=== PATIENT | female | born 1995 | race Caucasian/White ===

== ENCOUNTER 2017-03-07 06:53 | Emergency (ER) | payer SELFPAY ==
[~2017-03-07] VITALS: Ht 157.5 cm; Wt 61.7 kg
--- NOTE | 2017-03-07 06:58 | PHYS DOC ---
Adult General Chief Complaint Chief Complaint: sore throat HPI HPI Patient is a 21 year old female who presents with throat. She states it started 2 days ago its gotten worse. She states it's difficult for her to swallow and she's not been eating or drinking much. She states she has a history of this in it's easily strep throat. She states usually she is antibiotics and it resolves. She states she felt like she had chills overnight. She denies any shortness of breath headache. She denies any allergies to any medications. Review of Systems Review of Systems Constitutional: Denies fever or chills [] Eyes: Denies change in visual acuity, redness, or eye pain [] HENT: Denies nasal congestion, positive for sore throat [] Respiratory: Denies cough or shortness of breath [] Cardiovascular: No additional information not addressed in HPI [] GI: Denies abdominal pain, nausea, vomiting, bloody stools or diarrhea [] : Denies dysuria or hematuria [] Musculoskeletal: Denies back pain or joint pain [] Integument: Denies rash or skin lesions [] Neurologic: Denies headache, focal weakness or sensory changes [] Endocrine: Denies polyuria or polydipsia [] Physical Exam Physical Exam Constitutional: Well developed, well nourished, no acute distress, non-toxic appearance. [] HENT: Normocephalic, atraumatic, bilateral external ears normal, oropharynx moist, no oral exudates, nose normal. White exudates on bilateral pontine tonsils Eyes: PERRLA, EOMI, conjunctiva normal, no discharge. [] Neck: Normal range of motion, no tenderness, supple, no stridor. Anterior cervical lymphadenopathy noted Cardiovascular:Heart rate regular rhythm, no murmur [] Lungs & Thorax: Bilateral breath sounds clear to auscultation [] Abdomen: Bowel sounds normal, soft, no tenderness, no masses, no pulsatile masses. [] Skin: Warm, dry, no erythema, no rash. [] Back: No tenderness, no CVA tenderness. [] Extremities: No tenderness, no cyanosis, no clubbing, ROM intact, no edema. [] Neurologic: Alert and oriented X 3, normal motor function, normal sensory function, no focal deficits noted. [] Psychologic: Affect normal, judgement normal, mood normal. [] EKG EKG [] Radiology/Procedures Radiology/Procedures [] Impressions: Strep pharyngitis Course & Med Decision Making Course & Med Decision Making Pertinent Labs and Imaging studies reviewed. (See chart for details) Her history, physical exam is consistent with strep throat. Vitals were reviewed and she's not tachycardic or febrile. Will go ahead and empirically treat. She received 1.2 million units of Bicillin IM and 10 mg IM Decadron. Return precautions given. She is agreeable Plan B discharged in stable condition this time. Dragon Disclaimer Dragon Disclaimer This chart was dictated in whole or in part using Voice Recognition software in a busy, high-work load, and often noisy Emergency Department environment. It may contain unintended and wholly unrecognized errors or omissions. Departure Departure: Impression: Primary Impression: Strep pharyngitis Disposition: 01 HOME, SELF-CARE Condition: STABLE Patient Instructions: Strep Throat Additional Instructions: Your history and physical exam is consistent with strep throat. You received an IM shot of penicillin and Decadron. Your being discharged home. If you develop severe neck pain, fevers, nausea vomiting or urinary other concerns please return back to emergency department. You should feel better within the next 24 hours. KATHERINE BELL MD Mar 07, 2017 06:58
[2017-03-07 07:07] VITALS: BP 102/62
[2017-03-07] MEDS ORDERED: PENICILLIN G BENZATHINE LA 1,200,000 UNIT/2 ML DISP.SYRIN. IM ONE ×2 (07:12→07:30)
[2017-03-07] MEDS ORDERED: DEXAMETHASONE SOD PHOS 10 MG/ML VIAL ONE (07:12)
[2017-03-07] MEDS ORDERED: DEXAMETHASONE SOD PHOS 10 MG/ML VIAL IM ONE (07:30)
== END 2017-03-07 07:27 | disposition home or self-care (01) ==
LOC: ER 06:53
DX: J02.0 Streptococcal pharyngitis (principal)
CPT/HCPCS: 96372; 99284; J0561; J1100

== ENCOUNTER 2018-02-05 08:08 | Emergency (ER) | payer SELFPAY ==
[~2018-02-05] VITALS: Ht 157.5 cm; Wt 65.9 kg
[2018-02-05] MEDS ORDERED: MECLIZINE 12.5 MG TABLET. PO PRN (08:30)
[2018-02-05] MEDS ORDERED: MECL25TA3 PO (08:33)
--- NOTE | 2018-02-05 08:33 | PHYS DOC ---
Past History Past Medical History: No Pertinent History Past Surgical History: No Surgical History Alcohol Use: Occasionally Drug Use: None Adult General Chief Complaint Chief Complaint: EARACHE/EAR PAIN HPI HPI 22-year-old female presents with right ear pain, dizziness and nausea. She states she jumped into a pool off the high board with a rifle overhead and felt like she got water in her ear. Since that time her right ear has been full she' s had a difficult time hearing. Now, she states that she is beginning to feel like the room is spinning and she is nauseous. She is not noticed any drainage from the ear.[] Review of Systems Review of Systems Constitutional: Denies fever or chills [] Eyes: Denies change in visual acuity, redness, or eye pain [] HENT: Per history of present illness[] Respiratory: Denies cough or shortness of breath [] Cardiovascular: No additional information not addressed in HPI [] GI: Denies abdominal pain, nausea, vomiting, bloody stools or diarrhea [] : Denies dysuria or hematuria [] Musculoskeletal: Denies back pain or joint pain [] Integument: Denies rash or skin lesions [] Neurologic: Dizziness[] Endocrine: Denies polyuria or polydipsia [] All other systems were reviewed and found to be within normal limits, except as documented in this note. Current Medications Current Medications Current Medications Medications (Trade) Dose Ordered Sig/[place] Start Time Stop Time Status Last Admin Dose Admin Meclizine HCl (Antivert) 25 mg PRN Q6HRS PRN 02/05/18 08:30 Allergies Allergies Allergies Coded Allergies Type Severity Reaction Last Updated Verified No Known Drug Allergies 02/05/18 No Physical Exam Physical Exam Constitutional: Well developed, well nourished, no acute distress, non-toxic appearance. [] HENT: Normocephalic, atraumatic, bilateral external ears normal, TMs visible bilaterally with no erythema or bulging, oropharynx moist, no oral exudates, nose normal. [] Eyes: PERRLA, EOMI, conjunctiva normal, no discharge. [] Neck: Normal range of motion, no tenderness, supple, no stridor. [] Cardiovascular:Heart rate regular rhythm, no murmur [] Lungs & Thorax: Bilateral breath sounds clear to auscultation [] Abdomen: Bowel sounds normal, soft, no tenderness, no masses, no pulsatile masses. [] Skin: Warm, dry, no erythema, no rash. [] Back: No tenderness, no CVA tenderness. [] Extremities: No tenderness, no cyanosis, no clubbing, ROM intact, no edema. [] Neurologic: Alert and oriented X 3, normal motor function, normal sensory function, no focal deficits noted. [] Psychologic: Affect normal, judgement normal, mood normal. [] EKG EKG [] Radiology/Procedures Radiology/Procedures [] Course & Med Decision Making Course & Med Decision Making Pertinent Labs and Imaging studies reviewed. (See chart for details) [] Dragon Disclaimer Dragon Disclaimer This electronic medical record was generated, in whole or in part, using a voice recognition dictation system. Departure Departure: Impression: Primary Impression: Otalgia of right ear Additional Impression: Vertigo, labyrinthine Disposition: HOME, SELF-CARE Condition: STABLE Referrals: YESENIA GRISSOM MD (PCP) Patient Instructions: Otalgia, Vertigo Additional Instructions: Rest today. Take meclizine as needed for dizziness. Warm compresses over the outside of the right ear may help. 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
[2018-02-05 08:49] VITALS: BP 109/66
== END 2018-02-05 08:52 | disposition home or self-care (01) ==
LOC: ER 08:08
DX: H81.01 Meniere's disease, right ear (principal)
CPT/HCPCS: 99282; J8597